=== PATIENT | male | born 1960 | race Hispanic/Latino ===

== ENCOUNTER 2017-06-29 17:43 | Emergency (ER) | payer BC ==
[2017-06-29 17:49] VITALS: BP 158/87; PULSE 88; RESP 16; TEMP 98.2; O2SAT 97
--- NOTE | 2017-06-29 18:19 | ED PDOC ---
Lower Extremity Pain/Injury Time Seen by Provider: 06/29/17 18:12 Chief Complaint (Nursing): Lower Extremity Problem/Injury Chief Complaint (Provider): bilateral lower extremity pain History Per: Patient (56 y/o male h/o psoriasis here with bilateral lower leg swelling R>L. States he has moderate pruiritis and notes increased pain in legs. Was seen by Dr. Buck and placed on Doxycycline. Patient was to have outpatient Duplex but as symptoms worsened was sent to ED for evaluation.) Past Medical History Reviewed: Historical Data, Nursing Documentation, Vital Signs Vital Signs: Last Vital Signs Temp 98.2 F 06/29/17 17:46 Pulse 88 06/29/17 17:46 Resp 16 06/29/17 17:46 BP 158/87 H 06/29/17 17:46 Pulse Ox 97 06/29/17 17:46 - Medical History PMH: Diabetes, Fractures, HTN Denies: Chronic Kidney Disease - Family History Family History: States: No Known Family Hx - Home Medications Home Medications: Ambulatory Orders Medication Instructions Recorded Aspirin [Ecotrin] 81 mg PO DAILY 04/20/16 Cyanocobalamin [Vitamin B12 100 100 mcg PO DAILY 04/20/16 mcg Tab] Ergocalciferol (Vitamin D2) 50,000 unit PO QWK 04/20/16 [Vitamin D2] Folic Acid 1 mg PO DAILY 04/20/16 Glipizide [Glipizide Xl] 10 mg PO DAILY 04/20/16 Quinapril HCl 20 mg PO DAILY 04/20/16 Thiamine [Vitamin B1 Tab] 100 mg PO DAILY 04/20/16 metFORMIN [glucOPHAGE] 500 mg PO BID 04/20/16 - Allergies Allergies/Adverse Reactions: Allergies Allergy/AdvReac Type Severity Reaction Status Date / Time No Known Allergies Allergy Verified 06/29/17 17:46 Review of Systems ROS Statement: Except As Marked, All Systems Reviewed And Found Negative Physical Exam - Reviewed Nursing Documentation Reviewed: Yes Vital Signs Reviewed: Yes - Physical Exam Appears: Positive for: Well, Non-toxic, No Acute Distress Head Exam: Positive for: ATRAUMATIC, NORMAL INSPECTION, NORMOCEPHALIC Skin: Positive for: Normal Color, Warm, DRY Eye Exam: Positive for: EOMI, Normal appearance, PERRL ENT: Positive for: Normal ENT Inspection Neck: Positive for: Normal, Painless ROM Cardiovascular/Chest: Positive for: Regular Rate, Rhythm Respiratory: Positive for: CNT, Normal Breath Sounds Gastrointestinal/Abdominal: Positive for: Normal Exam, Bowel Sounds, Soft Back: Positive for: Normal Inspection Extremity: Positive for: Normal ROM, Other (mild erythema noted anterior legs bilaterally. Nontender. (+) swelling noted bilaterally) Neurologic/Psych: Positive for: Alert, Oriented - Laboratory Results Result Diagrams: 06/29/17 18:18 06/29/17 18:18 - ECG O2 Sat by Pulse Oximetry: 97 - Progress ED Course And Treament: DUPLEX BILATERAL: OTHER FINDINGS: A minimally enlarged lymph node is noted in the inguinal region bilaterally. IMPRESSION: No evidence of deep venous thrombosis. d/w Dr. Buck Disposition - Clinical Impression Clinical Impression: Lymphadenopathy, Leg swelling - Patient ED Disposition Is Patient to be Admitted: No - Disposition Disposition: Routine/Home Disposition Time: 19:35 Condition: FAIR Additional Instructions: Continue with antibiotics and f/u with Dr. Buck. Instructions: Lymphadenopathy (ED), Leg Edema (ED) Forms: [employer] ([employer])
[2017-06-29 18:32] LABS: BASO # 0.1 K/uL (0.0-0.2); BASO % 1.5 % (0.0-2.0); EOS # 0.6 K/uL (0.0-0.7); HEMATOCRIT 43.7 % (35.0-51.0); LYMPH # 2.7 K/uL (1.0-4.3); LYMPH % 30.3 % (20.0-40.0); MEAN CELL VOLUME 87.5 fl (80.0-94.0); MEAN CORPUSCULAR HEMOGLOBIN 29.8 pg (27.0-31.0); MEAN PLATELET VOLUME 7.9 fl (7.2-11.7); MONO # 0.8 K/uL (0.0-0.8); MONO % 9.2 % (0.0-10.0); NEUT # 4.5 K/uL (1.8-7.0); NRBC % 0.2 % (0.0-0.0); RED CELL DISTRIBUTION WIDTH 13.9 % (11.5-14.5); WHITE BLOOD COUNT 8.7 K/uL (4.8-10.8)
--- NOTE | 2017-06-29 18:39 | US ---
PROCEDURE: Bilateral lower extremity venous duplex Doppler. HISTORY: r/o dvt COMPARISON: None available. TECHNIQUE: Bilateral common femoral, superficial femoral, popliteal and posterior tibial veins were evaluated. Flow was assessed with color Doppler, compressibility, assessment of phasic flow and augmentation response. FINDINGS: COMMON FEMORAL VEIN: Right CFV: Unremarkable. Left CFV: Unremarkable. SUPERFICIAL FEMORAL VEIN: Right SFV: Unremarkable. Left SFV: Unremarkable. POPLITEAL VEIN: Right Popliteal: Unremarkable. Left Popliteal: Unremarkable. POSTERIOR TIBIAL VEIN: Right PTV: Unremarkable. Left PTV: Unremarkable. OTHER FINDINGS: A minimally enlarged lymph node is noted in the inguinal region bilaterally. IMPRESSION: No evidence of deep venous thrombosis.
[2017-06-29 18:42] LABS: BLOOD UREA NITROGEN 17 mg/dl (9-20); CALCIUM 9.6 mg/dL (8.4-10.2); CARBON DIOXIDE 27 mmol/L (22-30); CHLORIDE 102 mmol/L (98-107); GFR AFRICAN-AMERICAN > 60; GLUCOSE,RANDOM 101 mg/dL (75-110); SODIUM 140 mmol/l (132-148)
== END 2017-06-29 20:01 | disposition home or self-care (01) ==
LOC: H.ER 17:43
DX: R60.0 Localized edema (principal); R59.9 Enlarged lymph nodes, unspecified; E11.9 Type 2 diabetes mellitus without complications; I10 Essential (primary) hypertension; Z79.82 Long term (current) use of aspirin; Z79.84 Long term (current) use of oral hypoglycemic drugs